=== PATIENT | male | born 1975 | race Caucasian/White ===

== ENCOUNTER 2016-11-16 15:33 | Outpatient (CLI) | payer OTHER ==
--- NOTE | 2016-11-16 17:35 | MRI ---
MRI OF THE RIGHT WRIST WITHOUT CONTRAST: Date: 11/16/16 INDICATION: Right wrist injury while cooking in September 2016, concern for TFC tearing. COMPARISON: Right wrist radiograph dated 10/28/16. FINDINGS: Motion artifact limits detail of the exam. There is high T2 signal seen involving the central aspect of the TFC near its radial insertion suspi cious for a central perforation of the TFC. The peripheral attachments to the ulnar styloid appear i ntact. The scapholunate and lunotriquetral ligaments appear intact. The extensor tendons of the wrist appear within normal limits. The carpal tunnel and its contents ap pear within normal limits. The median nerve appears within normal limits. The FCR and FCU tendons ar e normal appearing. There is a 1.3 x 0.8 cm periarticular ganglion extending off the volar aspect of the radiocarpal piper nt on image 10 of series 4. No acute fracture is evident. IMPRESSION: 1. Small suspected central perforation of the TFC. Motion artifact limits image detail. If clinical ly indicated repeat MR with interarticular contrast may be helpful for improved delineation. 2. Volar periarticular ganglion measuring up to 1.3 cm extending off the of the radiocarpal joint. 3. Scapholunate and lunotriquetral ligaments appear intact. Visualized extensor tendons appear with in normal limits. 4. Carpal tunnel and its contents appear within normal limits. POS: [facility]
== END 2016-11-16 15:34 | disposition home or self-care (01) ==
LOC: MRI 15:33
PROVIDERS: ATTEND Orthopaedic Surgery Hand Surgery
DX: S63.591A Other specified sprain of right wrist, initial encounter (principal)

== ENCOUNTER 2017-01-11 08:01 | Outpatient (CLI) | payer OTHER ==
[2017-01-11 11:00] LABS: Hematocrit 48.4 % (42.0-52.0); Mean Platelet Volume 8.3 fL (7.4-10.4); Red Blood Cell (RBC) Count 5.25 mill/uL (4.70-6.10); White Blood Cell (WBC) Count 8.2 thou/uL (4.8-10.8)
== END 2017-01-11 08:02 | disposition home or self-care (01) ==
LOC: LABBT 08:01
PROVIDERS: ATTEND Orthopaedic Surgery Hand Surgery
DX: Z01.812 Encounter for preprocedural laboratory examination (principal); S63.591A Other specified sprain of right wrist, initial encounter
CPT/HCPCS: 85027; 85652; 93005; 93010

== ENCOUNTER 2017-01-13 05:53 | Day surgery (SDC) | payer OTHER ==
[2017-01-11 08:21] VITALS: BMI 26.0
[2017-01-13] MEDS ORDERED: Bupivacaine 0.25% HCL 30 ML VIAL ONE (06:31)
[2017-01-13] MEDS ORDERED: Fentanyl 100 MCG/2 ML VIAL ONE (06:31)
[2017-01-13] MEDS ORDERED: Dexamethasone 4 mg/ml Vial ONE (06:31)
[2017-01-13] MEDS ORDERED: Midazolam HCl 2 mg/2 ml Vial ONE (06:31)
[2017-01-13] MEDS ORDERED: Bacitracin Zinc Ointment 30 gm TUBE ONE (06:31)
[2017-01-13] MEDS ORDERED: CEFAZOLIN/Water 2 GM/20 ML SYRINGE ONE (06:47)
[2017-01-13] MEDS ORDERED: Fentanyl 250 MCG/5 ML VIAL ONE (07:17)
[2017-01-13] MEDS ORDERED: EPINEPHrine 1 MG/ML AMP ONE (07:18)
[2017-01-13] MEDS ORDERED: Bupivacaine PF 0.5% 30 ML VIAL ONE ×2 (07:18→15:54)
[2017-01-13] MEDS ORDERED: Ketorolac Tromethamine 30 MG/ML VIAL ONE (12:26)
[2017-01-13] MEDS ORDERED: Promethazine HCl 25 MG/ML VIAL ONE (12:46)
[2017-01-13] MEDS ORDERED: Ondansetron HCl/PF 4 MG/2 ML Vial ONE ×2 (13:21→15:02)
--- NOTE | 2017-01-13 13:23 | RAD ---
RIGHT WRIST ONE VIEW: History: Post op. FINDINGS: Single C-arm projection shows pin placement across the distal radius and ulna. I do not appreciate an y fracture line on this single film. IMPRESSION: 1. Intraoperative film shows pin placement overlying the distal radial and ulnar shafts on this AP pr ojection. 2. Incidental note is made of what appears to be a mild ulnar minus variant. POS: [facility]
[2017-01-13] MEDS ORDERED: Tamsulosin HCl 0.4 MG CAP ONE (13:48)
[2017-01-13] MEDS ORDERED: Lidocaine 1% PF 5 ML VIAL ONE (15:02)
[2017-01-13] MEDS ORDERED: ePHEDrine/0.9% NaCl/PF SYRINGE 50 mg/10 ml ONE (15:02)
[2017-01-13] MEDS ORDERED: CEFAZOLIN 1 GM VIAL ONE (15:02)
[2017-01-13] MEDS ORDERED: Sterile Water 10 ML VIAL ONE (15:02)
[2017-01-13] MEDS ORDERED: Propofol 200 MG/20 ML VIAL ONE (15:02)
[2017-01-13] MEDS ORDERED: Dexamethasone 20 MG/5 ML VIAL ONE (15:02)
[2017-01-13] MEDS ORDERED: Bupivacaine HCl 0.5%/Epinephrine 1:200,000/PF 30 ml Vial ONE (15:54)
--- NOTE | 2017-01-16 13:23 | OP ---
DATE OF SURGERY: 01/13/2017 PREOPERATIVE DIAGNOSES: Triangular fibrocartilage complex tear, ulnar aspect and volar ganglion cyst , palmar aspect of the wrist. POSTOPERATIVE DIAGNOSES: 1. Triangular fibrocartilage complex tear. 2. Marked synovitis, wrist. 3. Volar wrist ganglion almost 1 cm. PROCEDURE PERFORMED: Palmar wrist ganglion cyst excision. DESCRIPTION OF PROCEDURE: The patient had the injured limb prepped and draped, underwent timeout and we used an inline arthroscopic tower with an overhead boom to allow for conversion to open procedure if needed. We initially then identified a timeout appropriately as the consented site, established the appropriate 10 pounds of traction after sterile prep and placed in sterile finger traps with appr opriate traction and outlined all possible arthroscopy portals that include 6U, 6R, 3-4, midca rpal joint scope sites which was not used. We then prepared the 3-4 portal and the 6U portal by alysons t preparing the 3-4 portal and insufflated joint from this area. We then established the inflow from the direct 6U portal and the 6R began to perform panoramic view of the wrist. Marked synovitis was seen, so alternating between the working portals on the radial side and on the ulnar side, we perform ed a complete arthroscopic synovectomy. At that point, we could visualize a tear, approximately 1 cm long from what we could see in the most anterior edge of the center and ulnar triangular fibrocartil age. For this reason, we removed the arthroscope. We had to perform a synovectomy and the diagnosti c arthroscopy, and then, we inflated the tourniquet while still in the same inline traction for the s cope and set the tourniquet at 250 mmHg pressure. The incision was carried through the skin and subc utaneous tissue until we reached the retinaculum, released the retinaculum, removed the extensor digi ti minimi radially to expose the flow, which was the joint capsule. A 1.5 cm incision made in the thomas int capsule again visualized as seen in the scope. There was no intercarpal ligament tear. Synoviti s and chondritis had been debrided, and now we debrided the tear better. At this point, we then plac ed with a modified RV1 needle, 4-0 Prolene x5 to repair what we now saw as a 1.8 cm obliquely-oriente d more ulnarly central tear. We then finished the repair, cut the sutures short, took a photo, and then closed the joint capsule w ith 2-0 Prolene. The joint capsule compartment and the abductor digiti minimi was placed and t he retinaculum closed with interrupted 2-0 Monocryl, the subcutaneous closure was accomplished and on ce the tourniquet was deflated, hemostasis obtained with a running 4-0 Monocryl and the skin reapprox imated by interrupted 4-0 nylon. We gave an injection in the incision, a total of 10 mL in the joint , 5 mL of Marcaine 0.5%, placed a bulky dressing along with closing all the portals with 4-0 nylon, w e then noticed that there were edematous changes in the palmar aspect wrist where we had not been abl e to visualize the radiocarpal ganglion, but the MRI saw one now with the fluid from the scope, this was apparent. At this time, the tourniquet was reinflated. We made a zigzag incision over the promi nence carried through the skin and subcutaneous tissue, identified the radial artery from t he flexor carpal radialis and the tendon from the arteries back in the ulnar side wall. Th en, we followed the stalk down into the radiocarpal joint, made a little 3 mm incision in the joint c apsule, removed the mass and sent it for specimen. Tourniquet deflated, hemostasis obtained with two clips in the radial artery branch, subcutaneous was closed with 3-0 Monocryl in interrupted fashion and the dermis reapproximated with 4-0 nylon with interrupted mattress pattern. Bulky dressing was a pplied along with a splint and the patient left the operating room without evidence of anesthetic or operative complication.
== END 2017-01-13 14:35 | disposition home or self-care (01) ==
LOC: SDC 05:53
PROVIDERS: ATTEND Orthopaedic Surgery Hand Surgery
PROC: 0LB70ZZ Excision of Right Hand Tendon, Open Approach (ICD-10-PCS; principal; 2017-01-13)
DX: M67.431 Ganglion, right wrist (principal); S63.591A Other specified sprain of right wrist, initial encounter; I10 Essential (primary) hypertension; E78.5 Hyperlipidemia, unspecified; F17.200 Nicotine dependence, unspecified, uncomplicated; F12.90 Cannabis use, unspecified, uncomplicated; Z79.899 Other long term (current) drug therapy; Z88.6 Allergy status to analgesic agent; Z88.1 Allergy status to other antibiotic agents; Z88.5 Allergy status to narcotic agent; Z88.8 Allergy status to other drugs, medicaments and biological substances; Z98.890 Other specified postprocedural states
CPT/HCPCS: 76000; 88304; 96374; A4216; J0171; J0670; J0690; J1100; J1885; J2001; J2250; J2405; J2550; J2704; J3010; J3490; S0020

== ENCOUNTER 2017-02-21 13:25 | Day surgery (SDC) | payer OTHER ==
[2017-02-20 17:35] VITALS: BMI 27.1
[2017-02-21 15:13] LABS: #Basophils 0.1 thou/uL (0.0-0.2); #Eosinphils 0.1 thou/uL (0.0-0.7); #Monocytes 0.7 thou/uL (0.11-0.59); #Neutrophils 4.9 thou/uL (1.40-6.50); %Basophils 0.8 % (0.0-1.0); %Eosinophils 1.3 % (0.0-10.0); Hemoglobin 16.4 g/dL (14.0-18.0); Mean Corpuscular HGB CONC 34.2 g/dL (32.0-36.0); Mean Corpuscular Hemoglobin 31.5 pg (27.0-31.0); Mean Platelet Volume 7.4 fL (7.4-10.4); Platelet Count 189 thou/uL (130-400); RBC Distribution Width 12.7 % (11.5-14.5); Red Blood Cell (RBC) Count 5.22 mill/uL (4.70-6.10); White Blood Cell (WBC) Count 8.7 thou/uL (4.8-10.8)
[2017-02-21] MEDS ORDERED: Lidocaine 1% PF 5 ML VIAL ONE (15:18)
[2017-02-21] MEDS ORDERED: Succinylcholine Chloride 20 MG/ML 10 ml SYRINGE FS ONE (15:18)
[2017-02-21] MEDS ORDERED: Ondansetron HCl/PF 4 MG/2 ML Vial ONE ×2 (15:18→16:17)
[2017-02-21] MEDS ORDERED: Dexamethasone 20 MG/5 ML VIAL ONE (15:18)
[2017-02-21] MEDS ORDERED: Propofol 200 MG/20 ML VIAL ONE (15:18)
[2017-02-21] MEDS ORDERED: Fentanyl 100 MCG/2 ML VIAL ONE ×3 (16:02→22:25)
[2017-02-21] MEDS ORDERED: CEFAZOLIN/Water 2 GM/20 ML SYRINGE ONE ×2 (17:34→20:36)
[2017-02-21] MEDS ORDERED: Promethazine HCl 25 MG/ML VIAL ONE ×2 (19:25→20:58)
[2017-02-21] MEDS ORDERED: Bacitracin Zinc Ointment 30 gm TUBE ONE (20:43)
[2017-02-21] MEDS ORDERED: Bupivacaine PF 0.5% 30 ML VIAL ONE (20:43)
--- NOTE | 2017-02-22 07:54 | OP ---
DATE OF SURGERY: 02/21/2017 PREOPERATIVE DIAGNOSIS: Painful deep implant, distal ulnar joint, broken wire in two, 1/2 in the uln a and 1/2 in the radius. PROCEDURES PERFORMED: 1. Removal of radius wire deep. 2. Removal of ulna wire deep. 3. C-arm supervision less than 1 hour. SPECIMEN: Two halves of the wire, given to the patient who wanted to keep them. BLOOD LOSS: Less than 5 mL. TOURNIQUET TIME: 15 minutes. FINDINGS: Stable position of distal radial ulnar joint from the sagittal plane with the pins out. HISTORY: The patient is now five and a half weeks after a TFCC tear, treated with open repair becaus e it was a peripheral and pinning of the radius and ulna. This maintained congruent until yves reyes 48 hours ago when he noticed a pop. He was evaluated in our clinic 24 hours ago and was schedule d for surgery when the wires were broken. DESCRIPTION OF PROCEDURE: After successful general endotracheal anesthesia, the limb was prepped and draped. We took the splint off. I placed him in a tourniquet and exsanguinated the limb. We broug ht the C-arm to the edge to identify the wire, and the wire was completely intact, so it was removed on the radial side with dissection, and then a separate ulnar incision was then made to remove the wi re. Tourniquet was deflated at this time, the wound repaired with interrupted simple suture and the patient left the operating without complications.
--- NOTE | 2017-02-22 09:07 | RAD ---
2 VIEWS RIGHT WRIST: Date: 02/21/17 PROVIDED CLINICAL HISTORY: Hardware removal. FINDINGS: Frontal and lateral spot fluoroscopic views of the right wrist are performed, demonstrating surgical clips at the volar aspect of the wrist. The previously seen percutaneous pin associated with the dist al radius and ulna is no longer evident. IMPRESSION: As above. POS: [facility]
== END 2017-02-21 23:55 | disposition home or self-care (01) ==
LOC: SDC 13:25
PROVIDERS: ATTEND Orthopaedic Surgery Hand Surgery
PROC: 0XP60YZ Removal of Other Device from Right Upper Extremity, Open Approach (ICD-10-PCS; principal; 2017-02-21)
DX: T84.84XA Pain due to internal orthopedic prosthetic devices, implants and grafts, initial encounter (principal); T84.018A Broken internal joint prosthesis, other site, initial encounter; Z98.890 Other specified postprocedural states; Z83.3 Family history of diabetes mellitus; Z82.49 Family history of ischemic heart disease and other diseases of the circulatory system; Z83.49 Family history of other endocrine, nutritional and metabolic diseases; Z79.51 Long term (current) use of inhaled steroids; Z79.899 Other long term (current) drug therapy; Z88.5 Allergy status to narcotic agent; Z88.8 Allergy status to other drugs, medicaments and biological substances; Z91.018 Allergy to other foods
CPT/HCPCS: 36415; 76000; 85025; 96374; J1100; J1170; J2001; J2405; J2550; J2704; J3010; S0020

== ENCOUNTER 2017-07-07 07:54 | Outpatient (CLI) | payer BC, OTHER | END 2017-07-07 07:55 | disposition home or self-care (01) | LOC: BICCT 07:54 | PROVIDERS: ATTEND Orthopaedic Surgery Hand Surgery | DX: S62.141D Displaced fracture of body of hamate [unciform] bone, right wrist, subsequent encounter for fracture with routine healing (principal); Z98.890 Other specified postprocedural states ==

== ENCOUNTER 2019-08-09 14:10 | Outpatient (CLI) | payer BC ==
--- NOTE | 2019-08-09 15:23 | RAD ---
EXAM: THORACIC SPINE THREE VIEWS: 08/09/19 HISTORY: Left side thoracic back pain following an injury. Very mild spondylosis change. No fracture, dislocation, or other acute process. IMPRESSION: Unremarkable thoracic spine. POS: [facility]
== END 2019-08-09 14:11 | disposition home or self-care (01) ==
LOC: BICRAD 14:10
PROVIDERS: ATTEND Family Medicine
DX: M54.6 Pain in thoracic spine (principal)
CPT/HCPCS: 72072

== ENCOUNTER 2021-04-02 15:43 | Emergency (ER) | payer BC, SELFPAY ==
[~2021-04-02 15:43] MED LIST: Iopamidol 370 76% 100 ML VIAL ONE
[2021-04-02] MEDS ORDERED: Nitroglycerin 2% Ointment 1 INCH/1 GM Packet ONE (16:16)
[2021-04-02 16:30] LABS: #Basophils 0.1 thou/uL (0.0-0.2); #Eosinphils 0.2 thou/uL (0.0-0.7); #Lymphocytes 2.2 thou/uL (1.20-3.40); #Monocytes 0.6 thou/uL (0.11-0.59); #Neutrophils 4.4 thou/uL (1.40-6.50); %Eosinophils 2.2 % (0.0-10.0); %Lymphocytes 29.7 % (21.0-51.0); %Monocytes 7.7 % (0.0-10.0); %Neutrophils 59.5 % (42.0-75.0); Hemoglobin 15.8 g/dL (14.0-18.0); Mean Corpuscular Hemoglobin 31.8 pg (27.0-31.0); Mean Corpuscular Volume 93.8 fL (78.0-98.0); Mean Platelet Volume 7.5 fL (7.4-10.4); Platelet Count 205 thou/uL (130-400); RBC Distribution Width 11.8 % (11.5-14.5); Red Blood Cell (RBC) Count 4.97 mill/uL (4.70-6.10); White Blood Cell (WBC) Count 7.4 thou/uL (4.8-10.8)
[2021-04-02 17:01] LABS: ALT (SGPT) 78 U/L (8-55); AST (SGOT) 35 U/L (5-34); Albumin 5.1 g/dL (3.5-5.0); Alkaline Phosphatase 59 U/L (40-110); Anion Gap 14 mmol/L (10-20); BUN (Urea Nitrogen) 20 mg/dL (8.9-20.6); Bilirubin, Total 0.6 mg/dL (0.2-1.2); Calc. Creatinine Clearance 0 mL/min (70-130); Calcium 9.7 mg/dL (7.8-10.44); Carbon Dioxide 22 mmol/L (22-29); Chloride 104 mmol/L (98-107); Globulin 3.1 g/dL (2.4-3.5); Glucose 82 mg/dL (70-105); Lipase 20 U/L (8-78); Potassium 4.4 mmol/L (3.5-5.1); Protein, Total 8.2 g/dL (6.0-8.3); Sodium 136 mmol/L (136-145)
[2021-04-02] MEDS ORDERED: HYDROmorphone 0.5 MG/0.5 ML SYRINGE ONE (17:08)
[2021-04-02] MEDS ORDERED: Apixaban 5 MG TAB PO SCH (17:30)
[2021-04-02] MEDS ORDERED: Fentanyl 100 MCG/2 ML VIAL ONE (17:43)
== END 2021-04-02 19:10 | disposition home or self-care (01) ==
LOC: ERS 15:43
DX: I26.93 Single subsegmental thrombotic pulmonary embolism without acute cor pulmonale (principal); E78.5 Hyperlipidemia, unspecified; I10 Essential (primary) hypertension; F17.210 Nicotine dependence, cigarettes, uncomplicated; Z79.899 Other long term (current) drug therapy
CPT/HCPCS: 36415; 71275; 80053; 83690; 83880; 84484; 85025; 93005; 96374; J1170; J3010; Q9967

== ENCOUNTER 2024-12-23 13:31 | Outpatient (CLI) | payer BC ==
[2024-12-23 14:23] LABS: #Basophils 0.09 10x3/uL (0.0-0.2); #Eosinophils 0.05 10x3/uL (0.0-0.7); #Monocytes 0.54 10x3/uL (0.11-0.59); #Neutrophils 4.60 10x3/uL (1.40-6.50); %Basophils 1.3 % (0.0-1.0); %Eosinophils 0.7 % (0.0-10.0); %Lymphocytes 25.4 % (21.0-51.0); %Monocytes 7.6 % (0.0-10.0); %Neutrophils 64.6 % (42.0-75.0); Hematocrit 45.3 % (42.0-52.0); Hemoglobin 14.9 g/dL (14.0-18.0); Mean Corpuscular Hemoglobin 29.5 pg (27.0-31.0); Mean Corpuscular Volume 89.7 fL (78.0-98.0); Platelet Count 224 10x3/uL (130-400); Red Blood Cell (RBC) Count 5.05 mill/uL (4.70-6.10); White Blood Cell (WBC) Count 7.12 10x3/uL (4.8-10.8)
[2024-12-23 14:31] LABS: Bacteria/HPF None Seen HPF (None Seen); Glucose, Urine (Dipstick) Normal (Negative); Leukocyte Negative Leu/uL (Negative); Protein, Urine (Dipstick) Negative (Neg-Trace); RBC/HPF 0-3 HPF (0-3); Specific Gravity, Urine 1.026 (1.002-1.036); WBC/HPF 0-3 HPF (0-3)
[2024-12-23 14:35] LABS: Anion Gap 15 mmol/L (10-20); BUN (Urea Nitrogen) 18 mg/dL (8.9-20.6); Calc. Creatinine Clearance 0 mL/min (70-130); Calcium 9.2 mg/dL (7.8-10.44); Carbon Dioxide 20 mmol/L (22-29); Chloride 104 mmol/L (98-107); Glucose 108 mg/dL (70-105); Potassium 4.2 mmol/L (3.5-5.1); Sodium 135 mmol/L (136-145)
[2024-12-23 14:38] LABS: INR-International Normal Ratio 1.0; Prothrombin Time 13.6 sec (12.0-14.7)
[2024-12-23 14:39] LABS: PTT 20.7 sec (22.9-36.1)
== END 2024-12-23 13:32 | disposition home or self-care (01) ==
LOC: LABBT 13:31
PROVIDERS: ATTEND Urology
DX: Z01.818 Encounter for other preprocedural examination (principal); N40.1 Benign prostatic hyperplasia with lower urinary tract symptoms
CPT/HCPCS: 80048; 81001; 85025; 85610; 85730; 87086; 93005; 93010

== ENCOUNTER 2025-01-03 06:21 | Day surgery (SDC) | payer BC ==
[2024-12-23 13:47] VITALS: BMI 30.6
[2025-01-03] MEDS ORDERED: LevoFLOXacin D5W 500 mg (100 mL) BAG ONE (07:14)
[2025-01-03] MEDS ORDERED: HYDROmorphone 2 MG/ML VIAL ONE (07:23)
[2025-01-03] MEDS ORDERED: PROPOFOL 200 MG/20 ML VIAL ONE (07:44)
[2025-01-03] MEDS ORDERED: Ondansetron PF 4 MG/2 ML Vial ONE (08:00)
[2025-01-03] MEDS ORDERED: Oxybutynin 5 MG TAB ONE (08:57)
== END 2025-01-03 15:06 | disposition home or self-care (01) ==
LOC: SDC 06:21
PROVIDERS: ATTEND Urology
PROC: 0V507ZZ Destruction of Prostate, Via Natural or Artificial Opening (ICD-10-PCS; principal; 2025-01-03)
DX: N40.1 Benign prostatic hyperplasia with lower urinary tract symptoms (principal); R35.81 Nocturnal polyuria; N32.81 Overactive bladder; I10 Essential (primary) hypertension; E78.5 Hyperlipidemia, unspecified; Z88.6 Allergy status to analgesic agent; Z88.1 Allergy status to other antibiotic agents; Z88.5 Allergy status to narcotic agent; Z88.8 Allergy status to other drugs, medicaments and biological substances; Z98.890 Other specified postprocedural states; Z79.899 Other long term (current) drug therapy
CPT/HCPCS: A4333; J1100; J1171; J1956; J2250; J2405; J2704; J3010